=== PATIENT | female | born 1940 | race Caucasian/White ===

== ENCOUNTER → 2016-04-27 | Outpatient (CLI) | payer MEDICARE ==
[2016-04-27 09:58] LABS: Basophils # (A) 0.1 k/uL (0-0.2); Basophils % (A) 1 %; CH 28.5; Eosinophils # (A) 0.1 k/uL (0-0.7); Eosinophils % (A) 2 %; HCT 36.5 % (34.0-46.0); HDW 2.91; HGB 11.4 gm/dL (11.4-16.0); Hypochromasia Slight; Luc % (Auto) 2; Lymphocytes # (A) 0.7 k/uL (1.0-4.8); Lymphocytes % (A) 14 %; MCH 27.9 pg (25.0-35.0); MCHC 31.2 g/dL (31.0-37.0); MCV 89.4 fL (80.0-100.0); Mean Platelet Volume 6.9; Monocytes # (A) 0.4 k/uL (0-1.0); Monocytes % (A) 7 %; Neutrophils # (A) 3.7 k/uL (1.3-7.7); Neutrophils % (A) 74 %; RBC 4.09 m/uL (3.80-5.40); RDW 14.5 % (11.5-15.5); WBC (Perox) 5.19
[2016-04-27 10:10] LABS: Anion Gap 10 mmol/L; Blood Urea Nitrogen 17 mg/dL (7-17); Calcium 9.7 mg/dL (8.4-10.2); Carbon Dioxide 27 mmol/L (22-30); Chloride 104 mmol/L (98-107); Glucose 90 mg/dL (74-99); Non-African American GFR(MDRD) >60 (>60 ml/min/1.73 sqM); Potassium 4.6 mmol/L (3.5-5.1); Sodium 141 mmol/L (137-145)
== END | disposition home or self-care (01) ==
LOC: LABWHC1 08:54
PROVIDERS: ATTEND Internal Medicine
DX: I10 Essential (primary) hypertension (principal)
CPT/HCPCS: 36415; 80048; 85025

== ENCOUNTER → 2016-06-03 | Outpatient (CLI) | payer MEDICARE ==
--- NOTE | 2016-06-03 16:01 | BD ---
EXAMINATION TYPE: MG DEXA axial skeleton. DATE OF EXAM: 06/03/2016 10:44 AM COMPARISON: NONE CLINICAL HISTORY: Height: 5 FT 1 IN Weight: 130 FRAX RISK QUESTIONS: Alcohol (3 or more units per day): YES Family History (Parent hip fracture): YES Glucocorticoids (More than 3mos): NO (Ex: prednisone, prednisolone, methylprednisolone, dexamethasone, and hydrocortisone). History of Fracture in Adulthood: YES Secondary Osteoporosis: 1. Type 1 Diabetes: NO 2. Hyperthyroidism: NO 3. Menopause before 45: NO 4. Malnutrition: NO 5. Chronic liver disease: NO Rheumatoid Arthritis: NO Current Tobacco Use: NO RISK FACTORS HISTORY OF: Family History of Osteoporosis: YES Drink Alcohol: YES Active: YES Postmenopausal woman: TOTAL HYST AGE 54 MEDICATIONS: Additional Medications: KOZAR, VIT D, MOBIC, BABY ASPIRIN, CALCIUM, Additional History: EXAM MEASUREMENTS: Bone mineral densitometry was performed using the [employer] System. Bone mineral density as measured about the Lumbar spine is: ----- L1-L4(G/cm2): 0.943 T Score Values are as follows: ----- L2: -2.9 ----- L3: -1.9 ----- L4: -1.6 ----- L1-L4: -2.0 Bone mineral density has: Increased 1.0% since study of: 2014 Bone mineral density about the R hip (g/cm2): 0.635 Bone mineral density about the L hip (g/cm2): 0.660 T Score values are as follows: -----R Neck: -2.9 -----L Neck: -2.7 -----R Intertrochanter: -2.3 -----L Intertrochanter: -2.1 Bone mineral density has: Decreased -5.9% since study of: 2014 IMPRESSION: Osteoporosis (T Score less than -2.5) as noted by T Score values at the There is increased fracture risk and therapy is usually indicated based on age. Re-Screen 1-2 years. NOTE: T-SCORE=SD OF THE YOUNG ADULT MEAN.
--- NOTE | 2016-06-04 11:50 | MM ---
Reason for exam: screening (asymptomatic). Last mammogram was performed 1 year ago. History: Patient is postmenopausal. Took estrogen for 5 years. Physical Findings: A clinical breast exam by your physician is recommended on an annual basis and results should be correlated with mammographic findings. MG 3D Screening Mammo W/Cad Bilateral CC and MLO view(s) were taken. Prior study comparison: June 03, 2015, bilateral MG 3d screening mammo w/cad. April 16, 2014, bilateral MG screening mammo w CAD. April 10, 2013, bilateral digital screening mammo w/CAD. The breast tissue is extremely dense which could obscure a lesion on mammography. Finding: There are typically benign vascular, round calcifications in both breasts. There is no discrete abnormality. ASSESSMENT: Benign, BI-RAD 2 RECOMMENDATION: Routine screening mammogram of both breasts in 1 year.
== END | disposition home or self-care (01) ==
LOC: RADMAMWWP 09:14
PROVIDERS: ATTEND Obstetrics & Gynecology
DX: Z12.31 Encounter for screening mammogram for malignant neoplasm of breast (principal); M81.0 Age-related osteoporosis without current pathological fracture
CPT/HCPCS: 77080; 77063; G0202

== ENCOUNTER → 2016-07-16 | Outpatient (CLI) | payer MEDICARE | LOC: LABWHC1 14:11 | PROVIDERS: ATTEND Nurse Practitioner Family | DX: I10 Essential (primary) hypertension (principal) | CPT/HCPCS: 36415; 93005 ==

== ENCOUNTER → 2016-08-26 | Outpatient (CLI) | payer MEDICARE ==
[2016-08-26 16:35] LABS: Blood Urea Nitrogen 16 mg/dL (7-17); Non-African American GFR(MDRD) >60 (>60 ml/min/1.73 sqM)
--- NOTE | 2016-08-27 07:13 | CT ---
EXAMINATION TYPE: CT angio neck DATE OF EXAM: 08/26/2016 5:28 PM COMPARISON: NONE HISTORY: Abnormal doppler at office per patient CT DLP: 186.1 mGycm Automated exposure control for dose reduction was used. TECHNIQUE: Performed with IV Contrast, patient injected with 65 mL of Omnipaque 350. FINDINGS: There are emphysematous changes throughout the lungs. Visualized intracranial structures are unremarkable. Visualized portions of the paranasal sinuses and mastoids are clear. Vertebral body height and alignment are maintained. Atlantoaxial relationships are normal. There is degenerative disc disease at C4-5, C5-6 and C6-7. There is mild hypertrophic spondylosis at C5-6 and C6-7. There is mild, diffuse uncovertebral joint disease. No definite discal protrusion is s een. There is a normal origin of the great vessels. The right vertebral artery is dominant. There is mild atheromatous plaque involving the left carotid bulb. There is moderate atheromatous jared que involving the right carotid bulb. There is a high-grade, 90% by diameter stenosis involving the p roximal right ICA. There is a moderate, 40-50% by diameter stenosis involving the proximal left ICA. IMPRESSION: 1. HIGH-GRADE, APPROXIMATELY 90% BY DIAMETER STENOSIS INVOLVING THE PROXIMAL RIGHT ICA. 2. MODERATE, 46% BY DIAMETER STENOSIS INVOLVING THE PROXIMAL LEFT ICA. 3. EMPHYSEMATOUS CHANGES WITHIN THE LUNGS. 4. MILD DEGENERATIVE CHANGES WITHIN THE SPINE.
== END | disposition home or self-care (01) ==
LOC: RADCTMAIN 15:48
PROVIDERS: ATTEND Thoracic Surgery (Cardiothoracic Vascular Surgery)
DX: I65.23 Occlusion and stenosis of bilateral carotid arteries (principal)
CPT/HCPCS: 82565; 84520; 70498; 36415; Q9967

== ENCOUNTER → 2016-09-18 | Outpatient (CLI) | payer MEDICARE ==
[2016-09-18 10:42] LABS: Cholesterol 168 mg/dL (<200); HDL Cholesterol 59 mg/dL (40-60); Triglycerides 61 mg/dL (<150)
== END | disposition home or self-care (01) ==
LOC: LABWHC1 08:49
PROVIDERS: ATTEND Internal Medicine
DX: Z01.810 Encounter for preprocedural cardiovascular examination (principal); E78.00 Pure hypercholesterolemia, unspecified; Z01.812 Encounter for preprocedural laboratory examination
CPT/HCPCS: 36415; 80061

== ENCOUNTER → 2016-09-18 | Outpatient (CLI) | payer MEDICARE ==
[2016-09-18 09:23] LABS: CH 26.8; CHCM 30.9; HCT 36.3 % (34.0-46.0); HDW 2.79; HGB 11.2 gm/dL (11.4-16.0); Hypochromasia Moderate; MCH 26.8 pg (25.0-35.0); MCHC 30.8 g/dL (31.0-37.0); MCV 86.9 fL (80.0-100.0); Mean Platelet Volume 6.2; RBC 4.18 m/uL (3.80-5.40); RDW 15.1 % (11.5-15.5); WBC 5.6 k/uL (3.8-10.6)
[2016-09-18 09:27] LABS: Partial Thromboplastin Time 23.4 sec (22.0-30.0); Prothrombin Time 10.6 sec (9.0-12.0)
[2016-09-18 09:38] LABS: Appearance,Urine Cloudy (Clear); Bilirubin,Urine Negative (Negative); Calcium Oxalate Crystals,Urine Rare /hpf; Glucose,Urine (UA) Negative (Negative); Ketones,Urine Negative (Negative); Leukocyte Esterase,Urine Moderate (Negative); Mucus,Urine Rare /hpf; Nitrite,Urine Negative (Negative); PH, Urine 7.5 (5.0-8.0); Particle Count 5251; Protein,Urine 1+ (Negative); RBC,Urine 4 /hpf (0-5); Specific Gravity,Urine 1.018 (1.001-1.035); Squamous Epithelial Cell,Urine 1 /hpf (0-4); UA Billing (MACRO vs. MICRO) MICRO; WBC,Urine 9 /hpf (0-5)
[2016-09-18 10:42] LABS: Anion Gap 10 mmol/L; Blood Urea Nitrogen 23 mg/dL (7-17); Carbon Dioxide 25 mmol/L (22-30); Chloride 107 mmol/L (98-107); Glucose 95 mg/dL (74-99); Non-African American GFR(MDRD) >60 (>60 ml/min/1.73 sqM); Potassium 4.6 mmol/L (3.5-5.1); Sodium 142 mmol/L (137-145)
== END | disposition home or self-care (01) ==
LOC: LABPAT 09:02
PROVIDERS: ATTEND Thoracic Surgery (Cardiothoracic Vascular Surgery)
DX: Z01.810 Encounter for preprocedural cardiovascular examination (principal); Z01.812 Encounter for preprocedural laboratory examination
CPT/HCPCS: 80051; 81001; 82565; 82947; 84520; 85027; 85610; 85730; 87086

== ENCOUNTER 2016-09-23 05:58 | Inpatient (IN) | payer MEDICARE ==
[2016-09-17 11:05] VITALS: BMI 22.8
[~2016-09-23 05:58] MED LIST: ceFAZolin 2 GM in SODIUM CHLORIDE 0.9% 100 ML IVPB ONE
[2016-09-23] MEDS ORDERED: LACTATED RINGERS 1,000 ML IV SCH (05:59)
[2016-09-23] MEDS ORDERED: SCOPOLAMINE 1.5MG/72HR PATCH TRANSDERM ONE (05:59)
[2016-09-23] MEDS ORDERED: ONDANSETRON 4 MG/2 ML VIAL IVP ONE (05:59)
[2016-09-23] MEDS ORDERED: PHENYLEPHRINE 40 MG in SODIUM CHLORIDE 0.9% 250 ML IV SCH ×2 (05:59→12:30)
[2016-09-23] MEDS ORDERED: LIDOCAINE 1% 20 ML VIAL (10MG/ML) FOR IV START INTRADERMA PRN (05:59)
[2016-09-23] MEDS ORDERED: HYDROmorphone 1 MG/ML 1 ML SYRINGE IVP PRN (05:59)
[2016-09-23] MEDS ORDERED: DEXAMETHASONE SOD PHOSPHATE 10 MG/ML 1 ML VIAL IV ONE (05:59)
[2016-09-23] MEDS ORDERED: MIDAZOLAM 2 MG/2 ML VIAL IV PRN (05:59)
[2016-09-23] MEDS ORDERED: NITROGLYCERIN-D5W PMX 50 MG in DEXTROSE/WATER 1 250ML.BAG IV SCH (05:59)
[2016-09-23] MEDS ORDERED: LIDOCAINE 1% 20 ML VIAL (10MG/ML) FOR IV START INTRADERMA ONE ×2 (06:36)
[2016-09-23] MEDS ORDERED: fentaNYL (PF) 50 MCG/ML 2 ML AMP ONE (07:49)
[2016-09-23] MEDS ORDERED: SUCCINYLCHOLINE CHLORIDE 100 MG/5 ML SYR IV ONE (07:49)
[2016-09-23] MEDS ORDERED: LIDOCAINE 1% INJ 10MG/ML (20 ML MDV) ONE (07:49)
[2016-09-23] MEDS ORDERED: VECURONIUM 10 MG VIAL IV ONE (07:49)
[2016-09-23] MEDS ORDERED: PHENYLEPHRINE-0.9% NACL SYG 1 MG/10 ML SYRINGE ONE (07:49)
[2016-09-23] MEDS ORDERED: PROPOFOL 10 MG/ML 20 ML VIAL IV ONE (07:49)
[2016-09-23] MEDS ORDERED: MIDAZOLAM 2 MG/2 ML VIAL ONE (07:49)
[2016-09-23] MEDS ORDERED: NEOSTIGMINE 1 MG/ML 10 ML VIAL ONE (07:49)
[2016-09-23] MEDS ORDERED: GLYCOPYRROLATE 0.2 MG/ML 2 ML VIAL ONE (07:49)
[2016-09-23] MEDS ORDERED: HEPARIN SODIUM,PORCINE 5,000 UNIT/ML 1 ML VIAL IV ONE (08:31)
[2016-09-23] MEDS ORDERED: GELATIN SPONGE,ABSORB (LARGE) 1 EACH SPONGE TOPICAL ONE ×2 (08:35→09:24)
[2016-09-23] MEDS ORDERED: THROMBIN (BOVINE) 5,000 UNIT VIAL TOPICAL ONE ×2 (08:35→09:24)
[2016-09-23] MEDS ORDERED: SODIUM CHLORIDE 0.9% 500 ML with HEPARIN SODIUM,PORCINE 5,000 UNIT IV ONE ×2 (08:45)
--- NOTE | 2016-09-23 10:26 | P.OP ---
Date of Procedure: 09/23/16 Preoperative Diagnosis: Right internal carotid artery Postoperative Diagnosis: Right internal carotid artery stenosis Procedure(s) Performed: Right carotid endarterectomy Implants: Anesthesia: GETA Surgeon: Dakota Delarosa Accounting Administrative Assistant #1: Dennise Murphy Estimated Blood Loss (ml): 20 Pathology: other (Atherosclerotic plaque) Condition: stable Disposition: ICU Indications for Procedure: Operative Findings: Description of Procedure: Patient was brought to the operating room for elective carotid endarterectomy on the right side was prepped and draped in usual sterile Betadine fashion heparin was administered and she had exposure of the common internal and external carotid arteries on the right side is a severe plaque at the bifurcation heparin after heparin circulating time of 5 minutes we occluded the carotid artery and meticulously endarterectomized the carotid vessel neural monitoring throughout the procedure revealed no changes and therefore a shunt was not placed we meticulously remove the carotid plaque and all intimal debris flushed with heparin saline solution in patch close the vessel with a Hemashield background patch with 6-0 Prolene suture we removed cross-clamp's appropriately to vented the vessel and restore blood flow with no changes in neural monitoring and when the wound was completely dry we closed the wound in layers with Vicryl sutures and Steri-Strips all needle sponge and addition counts were correct Kristin operative report on Antonina and tierra Nazario thank you for typing
[2016-09-23] MEDS ORDERED: HYDROcodone/APAP 5-325MG 1 EACH TAB PO PRN ×2 (10:38)
[2016-09-23] MEDS ORDERED: MAG HYDROX/AL HYDROX/SIMETH 30 ML CUP PO PRN (10:38)
[2016-09-23] MEDS ORDERED: TEMAZEPAM 15 MG CAP PO PRN (10:38)
[2016-09-23] MEDS ORDERED: ACETAMINOPHEN TAB 325 MG TAB PO PRN (10:38)
[2016-09-23] MEDS ORDERED: TRIMETHOBENZAMIDE 100 MG/ML 2 ML VIAL IM PRN (10:38)
[2016-09-23] MEDS ORDERED: MORPHINE SULFATE 2 MG/ML SYRINGE IVP PRN (10:38)
[2016-09-23] MEDS ORDERED: BENZOCAINE/MENTHOL LOZENG 1 EACH LOZENGE MUCOUS MEM PRN (10:38)
[2016-09-23 11:02] LABS: Glucose,Whole Blood 122 mg/dL (75-99)
[2016-09-23] MEDS: DEXTROSE 5%-0.45% NACL 1,000 ML IV SCH (12:16)
[2016-09-23] MEDS: ASPIRIN 81 MG CHEW PO SCH (12:16)
[2016-09-23] MEDS ORDERED: ATROPINE SULFATE 0.1 MG/ML 10ML SYRINGE ONE (12:35)
[2016-09-23] MEDS ORDERED: SODIUM CHLORIDE 0.9% 250 ML IV ONE ×2 (12:39→13:15)
[2016-09-23] MEDS ORDERED: SODIUM CHLORIDE 0.9% 500 ML IV ONE (13:55)
[2016-09-23] MEDS ORDERED: DOPamine DRIP 800 MG in DEXTROSE/WATER 1 500ML.BAG IV SCH (14:25)
[2016-09-23] MEDS ORDERED: DOPamine DRIP 500 ML IV ONE (14:30)
[2016-09-23] MEDS: ceFAZolin 2 GM in SODIUM CHLORIDE 0.9% 100 ML IVPB SCH (15:02)
--- NOTE | 2016-09-23 16:13 | P.CNPUL ---
History of Present Illness Consult date: 09/23/16 Chief complaint: Right carotid endarterectomy History of present illness: 76-year-old female patient with a previous history of sarcoidosis, hypertension and she is an ex-smoker was found to have a critical carotid artery stenosis on the right. This was confirmed by CT angios of the neck that showed 90% and tender current artery stenosis. Based on that, the patient was taken to the operating room and she underwent a right carotid endarterectomy. She is currently postop day #0. Postop the patient was brought into the intensive care unit and initially she was hypotensive on Darrel-Synephrine. At that point Darrel-Synephrine was running at 50 mics and her heart rate was going as low as mid 40s. The Darrel-Synephrine was discontinued and the patient was placed on dopamine which improved her bradycardia and blood pressure. Surgical wound site is dry clean and intact. The patient has no specific complaints otherwise for now. No shortness of breath. Urine output is adequate for now. She is receiving IV fluids D5 half-normal at the rate of 75 mL an hour. Review of Systems All systems: negative Constitutional: Denies chills, Denies fever Eyes: denies blurred vision, denies pain Ears, nose, mouth and throat: Denies headache, Denies sore throat Cardiovascular: Denies chest pain, Denies shortness of breath Respiratory: Denies cough Gastrointestinal: Denies abdominal pain, Denies diarrhea, Denies nausea, Denies vomiting Genitourinary: Denies dysuria, Denies hematuria Musculoskeletal: Denies myalgias Integumentary: Denies pruritus, Denies rash Neurological: Denies numbness, Denies weakness Psychiatric: Denies anxiety, Denies depression Endocrine: Denies fatigue, Denies weight change Past Medical History Past Medical History: Eye Disorder, Hearing Disorder / Deafness, Hyperlipidemia , Hypertension, Osteoarthritis (OA), Respiratory Disorder Additional Past Medical History / Comment(s): Sarcoidosis currently inactive and stable, varicose veins, right carotid artery stenosis, osteoarthritis, cataracts, impaired hearing, hyperlipidemia History of Any Multi-Drug Resistant Organisms: None Reported Past Surgical History: Hysterectomy, Tubal Ligation Additional Past Surgical History / Comment(s): AMPARO BSO. ORIF FX RT TIB-FIB. LIPOMA LT LATERAL THORAX. Past Anesthesia/Blood Transfusion Reactions: No Reported Reaction Smoking Status: Former smoker - Past Family History Mother Family Medical History: No Reported History Medications and Allergies Home Medications Medication Instructions Recorded Confirmed Type Aspirin [Adult Low Dose Aspirin EC] 81 mg PO DAILY 09/17/16 09/23/16 History Calcium Carbonate/Vitamin D3 1 tab PO DAILY 09/17/16 09/23/16 History [Calcium 600-Vit D3 400 Tablet] Cholecalciferol [Vitamin D3] 3,000 unit PO DAILY 09/17/16 09/23/16 History Losartan [Cozaar] 25 mg PO DAILY 09/17/16 09/23/16 History Meloxicam [Mobic] 7.5 mg PO DAILY 09/17/16 09/23/16 History Vits A,C,E/Lutein/Minerals 1 tab PO DAILY 09/17/16 09/23/16 History [Ocuvite with Lutein Tablet] Allergies Allergy/AdvReac Type Severity Reaction Status Date / Time Xofvgfq-Rgh-Bvd Reductase AdvReac MUSCLE PAIN Verified 09/23/16 06:15 Inhibitor Physical Exam Vitals: Vital Signs Temp Pulse Pulse Pulse Resp BP BP 09/23/16 15:30 83 15 09/23/16 15:15 74 16 09/23/16 15:00 68 15 09/23/16 14:45 63 17 09/23/16 14:30 45 L 22 09/23/16 14:00 57 L 18 09/23/16 13:30 62 18 09/23/16 13:00 54 L 19 09/23/16 12:30 48 L 16 09/23/16 12:00 98.1 F 54 L 16 09/23/16 11:30 58 L 17 09/23/16 11:00 98.1 F 64 17 09/23/16 10:45 52 L 18 105/43 09/23/16 10:30 66 18 90/35 09/23/16 10:15 58 L 18 115/45 09/23/16 10:04 97 F L 60 16 110/52 09/23/16 06:35 98.1 F 79 16 151/65 BP BP Pulse Ox 09/23/16 15:30 96 09/23/16 15:15 97 09/23/16 15:00 97 09/23/16 14:45 96 09/23/16 14:30 97 09/23/16 14:00 99 09/23/16 13:30 99 09/23/16 13:00 100 09/23/16 12:30 99 09/23/16 12:00 99 09/23/16 11:30 99 09/23/16 11:00 98 09/23/16 10:45 99 09/23/16 10:30 99 09/23/16 10:15 99 09/23/16 10:04 113/43 98 09/23/16 06:35 133/60 98 Intake and Output 09/23/16 09/23/16 09/23/16 06:59 14:59 22:59 Intake Total 600 2233.120 650 Output Total 1080 850 Balance 600 1153.120 -200 Intake: IV 600 1331 150 Dextrose 5%-0.45% NaCl 1, 300 150 000 ml @ 75 mls/hr IV . [id number] [facility] Rx#:[id number] Lactated Ringers 1,000 ml 80 @ 20 mls/hr IV .Q24H [facility] Rx#:[id number] Intake, IV Titration 542.120 500 Amount DOPamine DRIP 800 mg In 1.805 Dextrose/Water 1 500ml. bag @ 3 MCG/KG/MIN 6.37 mls/hr IV .Q24H [facility] Rx#: [id number] Phenylephrine 40 mg In 40.315 Sodium Chloride 0.9% 250 ml @ Titrate IV .Q0M [facility] Rx#:[id number] Sodium Chloride 0.9% 250 500 ml @ 999 mls/hr IV .Q16M [facility] Rx#:[id number] Sodium Chloride 0.9% 500 500 ml @ 999 mls/hr IV .Q31M [facility] Rx#:[id number] Oral 360 Output: Urine 1060 850 Estimated Blood Loss 20 Other: Voiding Method Indwelling Catheter Indwelling Catheter Weight 56.699 kg Patient Weight 09/24/16 06:59 Weight 56.699 kg ABP, PAP, CO, CI - Last 8 Hours Arterial Blood Pressure 118/46 Arterial Blood Pressure 115/42 Arterial Blood Pressure 104/40 Arterial Blood Pressure 106/40 Arterial Blood Pressure 128/54 Arterial Blood Pressure 122/44 Arterial Blood Pressure 112/42 Arterial Blood Pressure 126/46 Arterial Blood Pressure 124/45 Arterial Blood Pressure 114/42 Arterial Blood Pressure 107/42 Arterial Blood Pressure 124/42 The patient appeared well nourished and normally developed. Vital signs as documented. Head exam is unremarkable. No scleral icterus or corneal arcus noted. Neck is without jugular venous distension, thyromegaly, or carotid bruits. Carotid upstrokes are brisk bilaterally. Lungs are clear to auscultation and percussion. Cardiac exam reveals the PMI to be normally sized and situated. Rhythm is regular. First and second heart sounds normal. No murmurs, rubs or gallops. Abdominal exam reveals normal bowel sounds, no masses , no organomegaly and no aortic enlargement. Extremities are nonedematous and both femoral and pedal pulses are normal. Surgical wound site over the right neck area dry clean and intact at this point. Results - Laboratory Findings Abnormal lab findings: Abnormal Labs 09/23/16 10:59 POC Glucose (mg/dL) 122 H Assessment and Plan Plan: Assessment 1 right-sided endarterectomy, patient is postop day 0 2 postoperative hypotension recovered and currently the patient is on dopamine at 5 mics. 3 sarcoidosis currently inactive in stable 4 hyperlipidemia 5 hypertension 6 osteoarthritis 7 impaired hearing Plan Continued IV fluids and the patient is on D5 half-normal. Wean off dopamine and discontinue as tolerated to keep him map of above 65. Monitor urine output. Monitor the surgical wound site. Neuro checks. Keep the patient ICU overnight. Possible discharge within the next 2448 hrs. if condition is further stabilized.
[2016-09-23] MEDS: HEPARIN SODIUM,PORCINE 5,000 UNIT/ML 1 ML VIAL SQ SCH (16:21)
[2016-09-24] MEDS: ceFAZolin 2 GM in SODIUM CHLORIDE 0.9% 100 ML IVPB SCH (00:28)
[2016-09-24] MEDS: DEXTROSE 5%-0.45% NACL 1,000 ML IV SCH (01:45)
[2016-09-24] MEDS: HEPARIN SODIUM,PORCINE 5,000 UNIT/ML 1 ML VIAL SQ SCH ×2 (01:53→08:35)
[2016-09-24 04:27] LABS: Basophils % (A) 1 %; CHCM 31.9; Eosinophils # (A) 0.1 k/uL (0-0.7); Eosinophils % (A) 1 %; HCT 30.5 % (34.0-46.0); HDW 2.81; Hypochromasia Slight; Luc # (Auto) 0.13; Luc % (Auto) 2; Lymphocytes # (A) 0.9 k/uL (1.0-4.8); Lymphocytes % (A) 15 %; MCHC 31.8 g/dL (31.0-37.0); MCV 84.9 fL (80.0-100.0); Mean Platelet Volume 7.1; Monocytes # (A) 0.4 k/uL (0-1.0); Monocytes % (A) 6 %; Neutrophils # (A) 4.2 k/uL (1.3-7.7); Neutrophils % (A) 74 %; RBC 3.59 m/uL (3.80-5.40); RDW 15.1 % (11.5-15.5); WBC 5.6 k/uL (3.8-10.6); WBC (Perox) 5.71
[2016-09-24 04:29] LABS: HGB 9.7 gm/dL (11.4-16.0)
--- NOTE | 2016-09-24 08:19 | P.PN ---
<Erlinda Goff - Last Filed: 09/24/16 08:11> Subjective Principal diagnosis: right internal carotid artery stenosis POD #1 right carotid endarterectomy Patient's currently sitting up in bed in no acute distress. Was on Neosynephrine after OR for hypotension but was becoming bradycardic in the 40s. Was given IV fluid boluses, Darrel was discontinued, and she was placed on dopamine for hypotension and bradycardia. Dopamine continued to be weaned overnight. Patient denies any pain. Objective - Vital Signs Vital signs: Vital Signs Temp 98.1 F 09/24/16 04:00 Pulse 62 09/24/16 07:00 Resp 25 H 09/24/16 07:00 BP 92/41 09/24/16 06:00 Pulse Ox 94 L 09/24/16 07:00 Intake & Output 09/23/16 09/24/16 09/24/16 18:59 06:59 18:59 Intake Total 3393.120 925 75 Output Total 2155 2270 125 Balance 1238.120 -1345 -50 Weight 56.699 kg 61.3 kg Intake: IV 1631 925 75 Dextrose 5%-0.45% NaCl 1, 600 825 75 000 ml @ 75 mls/hr IV . [id number] [facility] Rx#:[id number] Lactated Ringers 1,000 ml 80 @ 20 mls/hr IV .Q24H [facility] Rx#:[id number] ceFAZolin 2 gm In Sodium 100 Chloride 0.9% 100 ml @ 100 mls/hr IVPB Q8H [facility] Rx#:[id number] Intake, IV Titration 1042.120 Amount DOPamine DRIP 800 mg In 1.805 Dextrose/Water 1 500ml. bag @ 3 MCG/KG/MIN 6.37 mls/hr IV .Q24H [facility] Rx#: [id number] Phenylephrine 40 mg In 40.315 Sodium Chloride 0.9% 250 ml @ Titrate IV .Q0M [facility] Rx#:[id number] Sodium Chloride 0.9% 250 500 ml @ 999 mls/hr IV .Q16M [facility] Rx#:[id number] Sodium Chloride 0.9% 500 500 ml @ 999 mls/hr IV .Q31M [facility] Rx#:[id number] Oral 720 Output: Urine 2135 2270 125 Estimated Blood Loss 20 Other: Voiding Method Indwelling Catheter Indwelling Catheter ABP, PAP, CO, CI - Last Documented Arterial Blood Pressure 103/45 - Constitutional General appearance: Present: cooperative, no acute distress - Respiratory Details: Lungs clear to auscultation. Respirations even, nonlabored. Currently on room air with oxygen saturation 96%. Able to achieve 1250 mL on her incentive spirometry. - Cardiovascular Details: S1, S2 present. Regular rate and rhythm, sinus bradycardia to sinus rhythm on telemetry. Teds/SCDs present. - Gastrointestinal Gastrointestinal Comment(s): Abdomen soft, nontender, nondistended. Active bowel sounds 4 quadrants. Tolerating diet. - Genitourinary Genitourinary Comment(s): Lainez present draining clear, yellow urine. Output last night 75-325 ml/hr - Integumentary Integumentary Comment(s): Right neck incision dressing removed, incision well approximated. - Neurologic Neurologic Comment(s): Neurologically intact without any focal deficits. - Musculoskeletal Musculoskeletal: Present: strength equal bilaterally - Psychiatric Psychiatric: Present: A&O x's 3, appropriate affect, intact judgment & insight - Allied health notes Allied health notes reviewed: nursing - Labs CBC & Chem 7: 09/24/16 04:11 Labs: Abnormal Lab Results - Last 24 Hours (Table) 09/23/16 09/24/16 Range/Units 10:59 04:11 RBC 3.59 L (3.80-5.40) m/uL Hgb 9.7 L D (11.4-16.0) gm/dL Hct 30.5 L (34.0-46.0) % Lymphocytes # 0.9 L (1.0-4.8) k/uL POC Glucose (mg/dL) 122 H (75-99) mg/dL Assessment and Plan (1) Carotid stenosis, right Status: Acute (2) Hypertension Status: Acute (3) Hyperlipidemia Status: Acute Plan: 1. Wean dopamine. 2. Neuro checks. 3. Continue to encourage incentive spirometry. 4. Increase activity, out of bed to chair. Ambulate in hallway. 5. Will discontinue arterial line if able to discontinue dopamine and blood pressure remains stable. 6. Medical management per primary/pulminology. 7. Possible transfer to [facility] later this afternoon if able to discontinue dopamine and blood pressure remains stable. 8. More recommendations as patient progresses. Time with Patient: Greater than 30 <Marco Antonio Gordon - Last Filed: 09/24/16 08:33> Subjective TELEPHONE SERVICE ADVISER note reviewed and accepted. Stable first postop day from right carotid endarterectomy with patch angioplasty. Still requiring some dopamine to maintain adequate systolic pressure. Hemodynamics and urine output otherwise satisfactory. Neck shows no swelling or induration. Neurologically intact. Continue to wean dopamine. Home when blood pressure stable off all IV meds. Objective - Vital Signs Vital signs: Vital Signs Temp 98.1 F 09/24/16 04:00 Pulse 62 09/24/16 07:00 Resp 25 H 09/24/16 07:00 BP 92/41 09/24/16 06:00 Pulse Ox 94 L 09/24/16 07:00 Intake & Output 09/23/16 09/24/16 09/24/16 18:59 06:59 18:59 Intake Total 3393.120 925 75 Output Total 2155 2270 125 Balance 1238.120 -1345 -50 Weight 56.699 kg 61.3 kg Intake: IV 1631 925 75 Dextrose 5%-0.45% NaCl 1, 600 825 75 000 ml @ 75 mls/hr IV . [id number] [facility] Rx#:[id number] Lactated Ringers 1,000 ml 80 @ 20 mls/hr IV .Q24H [facility] Rx#:[id number] ceFAZolin 2 gm In Sodium 100 Chloride 0.9% 100 ml @ 100 mls/hr IVPB Q8H [facility] Rx#:[id number] Intake, IV Titration 1042.120 Amount DOPamine DRIP 800 mg In 1.805 Dextrose/Water 1 500ml. bag @ 3 MCG/KG/MIN 6.37 mls/hr IV .Q24H [facility] Rx#: [id number] Phenylephrine 40 mg In 40.315 Sodium Chloride 0.9% 250 ml @ Titrate IV .Q0M [facility] Rx#:[id number] Sodium Chloride 0.9% 250 500 ml @ 999 mls/hr IV .Q16M [facility] Rx#:[id number] Sodium Chloride 0.9% 500 500 ml @ 999 mls/hr IV .Q31M [facility] Rx#:[id number] Oral 720 Output: Urine 2135 2270 125 Estimated Blood Loss 20 Other: Voiding Method Indwelling Catheter Indwelling Catheter ABP, PAP, CO, CI - Last Documented Arterial Blood Pressure 103/45 - Labs CBC & Chem 7: 09/24/16 04:11 Labs: Abnormal Lab Results - Last 24 Hours (Table) 09/23/16 09/24/16 Range/Units 10:59 04:11 RBC 3.59 L (3.80-5.40) m/uL Hgb 9.7 L D (11.4-16.0) gm/dL Hct 30.5 L (34.0-46.0) % Lymphocytes # 0.9 L (1.0-4.8) k/uL POC Glucose (mg/dL) 122 H (75-99) mg/dL
[2016-09-24] MEDS: ASPIRIN 81 MG CHEW PO SCH (08:36)
[2016-09-24] MEDS ORDERED: LOSARTAN 25 MG TAB PO SCH (09:00)
[2016-09-24] MEDS ORDERED: MELOXICAM 7.5 MG TAB PO SCH (09:00)
[2016-09-24] MEDS ORDERED: ASPIRIN 81 MG CHEW PO SCH (09:00)
[2016-09-24] MEDS ORDERED: VIT A,C & E-LUTEIN-MINERALS 1 EACH TAB PO SCH (09:00)
[2016-09-24] MEDS ORDERED: CALCIUM CARB-VIT D 500MG-200UN 1 EACH TAB PO SCH (09:00)
[2016-09-24] MEDS ORDERED: CHOLECALCIFEROL 1,000 UNIT TAB PO SCH (12:00)
--- NOTE | 2016-09-24 12:11 | P.PN ---
Subjective 76-year-old female patient with a previous history of sarcoidosis, hypertension and she is an ex-smoker was found to have a critical carotid artery stenosis on the right. This was confirmed by CT angios of the neck that showed 90% and tender current artery stenosis. Based on that, the patient was taken to the operating room and she underwent a right carotid endarterectomy. She is currently postop day #0. Postop the patient was brought into the intensive care unit and initially she was hypotensive on Darrel-Synephrine. At that point Darrel-Synephrine was running at 50 mics and her heart rate was going as low as mid 40s. The Darrel-Synephrine was discontinued and the patient was placed on dopamine which improved her bradycardia and blood pressure. Surgical wound site is dry clean and intact. The patient has no specific complaints otherwise for now. No shortness of breath. Urine output is adequate for now. She is receiving IV fluids D5 half-normal at the rate of 75 mL an hour. On the patient is being seen in the follow-up. She is postop day #1 following a right carotid endarterectomy. As mentioned earlier, she had issues with hypotension. The patient was placed on dopamine which gradually got weaned off and was discontinued this morning. Following that her blood pressure dropped down to the mid 80s and currently it is up to mid 100s. She is producing adequate amount of urine output. She is asymptomatic with this blood pressure. We opted to monitor the blood pressure for another 6 hours prior to making any commitment on her disposition. The hemoglobin is at 9.7. Objective - Vital Signs Vital signs: Vital Signs Temp 97.4 F L 09/24/16 08:00 Pulse 66 09/24/16 11:00 Resp 20 09/24/16 11:00 BP 101/44 09/24/16 11:00 Pulse Ox 99 09/24/16 11:00 Intake & Output 09/23/16 09/24/16 09/24/16 18:59 06:59 18:59 Intake Total 3393.120 925 248.978 Output Total 2155 2270 145 Balance 1238.120 -1345 103.978 Weight 56.699 kg 61.3 kg Intake: IV 1631 925 75 Dextrose 5%-0.45% NaCl 1, 600 825 75 000 ml @ 75 mls/hr IV . [id number] [facility] Rx#:[id number] Lactated Ringers 1,000 ml 80 @ 20 mls/hr IV .Q24H [facility] Rx#:[id number] ceFAZolin 2 gm In Sodium 100 Chloride 0.9% 100 ml @ 100 mls/hr IVPB Q8H [facility] Rx#:[id number] Intake, IV Titration 1042.120 173.978 Amount DOPamine DRIP 800 mg In 1.805 173.978 Dextrose/Water 1 500ml. bag @ 3 MCG/KG/MIN 6.37 mls/hr IV .Q24H [facility] Rx#: [id number] Phenylephrine 40 mg In 40.315 Sodium Chloride 0.9% 250 ml @ Titrate IV .Q0M [facility] Rx#:[id number] Sodium Chloride 0.9% 250 500 ml @ 999 mls/hr IV .Q16M [facility] Rx#:[id number] Sodium Chloride 0.9% 500 500 ml @ 999 mls/hr IV .Q31M [facility] Rx#:[id number] Oral 720 Output: Urine 2135 2270 145 Estimated Blood Loss 20 Other: Voiding Method Indwelling Catheter Indwelling Catheter ABP, PAP, CO, CI - Last Documented Arterial Blood Pressure 108/33 - Exam The patient appeared well nourished and normally developed. Vital signs as documented. Head exam is unremarkable. No scleral icterus or corneal arcus noted. Neck is without jugular venous distension, thyromegaly, or carotid bruits. Carotid upstrokes are brisk bilaterally. Lungs are clear to auscultation and percussion. Cardiac exam reveals the PMI to be normally sized and situated. Rhythm is regular. First and second heart sounds normal. No murmurs, rubs or gallops. Abdominal exam reveals normal bowel sounds, no masses , no organomegaly and no aortic enlargement. Extremities are nonedematous and both femoral and pedal pulses are normal. Surgical wound site over the right neck area dry clean and intact at this point. - Labs CBC & Chem 7: 09/24/16 04:11 Labs: Abnormal Lab Results - Last 24 Hours (Table) 09/24/16 Range/Units 04:11 RBC 3.59 L (3.80-5.40) m/uL Hgb 9.7 L D (11.4-16.0) gm/dL Hct 30.5 L (34.0-46.0) % Lymphocytes # 0.9 L (1.0-4.8) k/uL Assessment and Plan Plan: Assessment 1 right-sided endarterectomy, patient is postop day 1 2 postoperative hypotension recovered and currently the patient is off pressors 3 sarcoidosis currently inactive in stable 4 hyperlipidemia 5 hypertension 6 osteoarthritis 7 impaired hearing Plan Continued IV fluids and the patient is on D5 half-normal. Wean off dopamine and discontinue as tolerated to keep him map of above 65. Monitor urine output. Monitor the surgical wound site. Neuro checks. Keep the patient ICU overnight. Possible discharge within the next 2448 hrs. if condition is further stabilized. No other major issues for now. Respiratory status is stable.
[2016-09-24 12:26] VITALS: PULSE 61; RESP 18; TEMP 97.5
[2016-09-24 15:18] LABS: ALT 15 U/L (9-52); AST 12 U/L (14-36); Alkaline Phosphatase 52 U/L (38-126); Anion Gap 6 mmol/L; Blood Urea Nitrogen 8 mg/dL (7-17); Calcium 9.1 mg/dL (8.4-10.2); Carbon Dioxide 26 mmol/L (22-30); Chloride 107 mmol/L (98-107); Glucose 106 mg/dL (74-99); Non-African American GFR(MDRD) >60 (>60 ml/min/1.73 sqM); Potassium 3.9 mmol/L (3.5-5.1); Sodium 139 mmol/L (137-145); Total Bilirubin 0.3 mg/dL (0.2-1.3); Total Protein 5.6 g/dL (6.3-8.2)
[2016-09-24 15:27] VITALS: BP 121/57
--- NOTE | 2016-09-25 08:32 | P.DS ---
Providers Date of admission: 09/23/16 05:58 Attending physician: Dakota Delarosa Consults: 09/23/16 10:38 Consult Physician Routine Consulting Provider: Marco Antonio Gordon Consult Reason/Comments: vascular managment Do you want consulting provider notified?: Already Contacted Consult Physician Routine Consulting Provider: Rosemary Parker Consult Reason/Comments: known to you, med managment Do you want consulting provider notified?: Yes 09/23/16 14:41 Consult Physician Routine Consulting Provider: Maru Ruano Consult Reason/Comments: Bradycardia Do you want consulting provider notified?: Already Contacted Primary care physician: Rosemary [facility] Course: FINAL DIAGNOSIS: 1.[ High-grade right internal carotid artery stenosis] 2.[ Sarcoidosis] 3.[ Hypertension] 4.[ Hyperlipidemia] 5.[ History of nicotine dependence] PRINCIPAL PROCEDURE: 1.[ Right carotid endarterectomy with Dacron patch angioplasty] HISTORY OF PRESENT ILLNESS: [This is a 76-year-old female patient who is followed by Dr. Rosemary Parker on an outpatient basis. The patient has a previous history of hypertension, hyperlipidemia, sarcoidosis, and has a history of nicotine dependence in the past. Recently, she was found to have an abnormal carotid doppler and subsequently underwent a CTA of her neck on 08/26/2016 which demonstrated a high-grade stenosis of 90% involving her proximal right internal carotid artery. The CTA of her neck also demonstrated a moderate 40-50 % stenosis involving her proximal left internal carotid artery. She was seen by Dr. Marco Antonio Gordon on the office and the results of the CTA of her neck were reviewed with the patient and an elective right carotid endarterectomy procedure was recommended.] HOSPITAL COURSE:[ The patient was admitted to the hospital and after obtaining consent was taken to the operating room where Dr. Dakota Delarosa complete an elective right carotid endarterectomy with Dacron patch angioplasty. The patient was then transferred to the cardiovascular intensive care unit where she was recovered, and monitored hemodynamically. The patient recovered well and discharge instructions were reviewed with the patient and her family.] COMPLICATIONS: [There were no postoperative complications.] CONSULTATIONS: 1.[ Dr. Rouse for medical and intensive care management] DISCHARGE INSTRUCTIONS: 1. No driving for 4 weeks, or until physician gives their ok. 2. The patient should sleep in their own bed, no medical bed needed. 3. Please notify surgeon/nurse practitioner for temperature greater than 101F or purulent drainage from incisions 4. No lifting, pushing, or pulling more than 10 pounds for 2 weeks. The physician will advise of any restriction changes. 5. Routine sternal incision care thereafter no ointments, lotions or powders on the incisions. Plan - Discharge Summary New Discharge Prescriptions: New Acetaminophen Tab [Tylenol] 650 mg PO Q4HR PRN tab PRN Reason: Mild Pain Aspirin 162 mg PO DAILY Continue Vits A,C,E/Lutein/Minerals [Ocuvite with Lutein Tablet] 1 tab PO DAILY Losartan [Cozaar] 25 mg PO DAILY Cholecalciferol [Vitamin D3] 3,000 unit PO DAILY Meloxicam [Mobic] 7.5 mg PO DAILY Calcium Carbonate/Vitamin D3 [Calcium 600-Vit D3 400 Tablet] 1 tab PO DAILY Discontinued Aspirin [Adult Low Dose Aspirin EC] 81 mg PO DAILY Discharge Medication List Calcium Carbonate/Vitamin D3 [Calcium 600-Vit D3 400 Tablet] 1 tab PO DAILY [History] Cholecalciferol [Vitamin D3] 3,000 unit PO DAILY 09/17/16 [History] Losartan [Cozaar] 25 mg PO DAILY 09/17/16 [History] Meloxicam [Mobic] 7.5 mg PO DAILY 09/17/16 [History] Vits A,C,E/Lutein/Minerals [Ocuvite with Lutein Tablet] 1 tab PO DAILY 09/17/16 [History] Acetaminophen Tab [Tylenol] 650 mg PO Q4HR PRN tab 09/24/16 [Rx] Aspirin 162 mg PO DAILY 09/24/16 [Rx] Follow up Appointment(s)/Referral(s): Rosemary Parker MD [Primary Care Provider] - 10/15/16 10:45 am Marco Antonio Gordon DO [Doctor of Osteopathic Medicine] - 2 Weeks (system down at office. will have pt call for 2 week follow up appointment.) Patient Instructions/Handouts: Atherectomy (DC) Activity/Diet/Wound Care/Special Instructions: DISCHARGE INSTRUCTIONS: 1. No driving until physician gives their ok. 2. No lifting, pushing, or pulling more than 5 pounds until seen by Dr. Gordon. 3. The patient is expected to continue the prescribed walking program. 4. Continue pain control per as needed orders. 5. Continue with incentive spirometry until otherwise directed by the physician. 6. Must shower daily using liquid antibacterial soap over incision. 7. Routine incision care. No powders, lotions, ointments on incisions. 8. Please call surgeon/MARKETING OPERATIONS COORDINATOR for temp greater than 101 F, purulent drainage/ increased redness from incisions, signs/symptoms of stroke (slurred speech, difficulty swallowing, weakness on one side of the body). 9. Follow a heart healthy diet. Discharge Disposition: HOME SELF-CARE
--- NOTE | 2016-09-26 08:07 | CONS ---
Mrs. Martin is a 76-year-old female who is seen for cardiac evaluation after the carotid endarterectomy. The patient underwent carotid endarterectomy without any problem and the patient had some low blood pressure in the intensive care unit. Patient was started on Darrel-Synephrine and subsequently the patient became bradycardic. She did not have any chest pain or shortness of breath. Patient has a history of hypertension. She did take her Cozaar this morning. Patient denies any prior history of angina, myocardial infarction or congestive cardiac failure. Patient has a history of sarcoidosis. Past medical history includes history of varicose veins, cataract surgery, history of lipoma and history of right- tibia fibular fracture and total abdominal hysterectomy. Patient's home medications include Mobic, Cozaar and baby aspirin. Physical examination at present reveals a 76-year-old female who is comfortable , does not appear to be in any acute distress. Patient's heart rate is 70 per minute, blood pressure is 95/70 mmHg. Head and ENT examination is negative. Neck is supple. There is no increase in jugular venous pressure. Both the carotid pulses are felt. There is no bruit. Chest is symmetrical. Heart: PMI is not felt. First and second heart sounds are normal. There is no evidence of any murmur. Lungs are clinically clear to auscultation and percussion. Abdomen is soft. Liver and spleen are not enlarged. Extremities: Peripheral pulsations are 2+. FINAL IMPRESSION: This patient is status post carotid endarterectomy. Patient had an episode of hypotension without any symptoms. The patient's blood pressure is now being maintained with dopamine. Heart rate is under control. We will continue to monitor her for the next 24-hours. [facility]
== END 2016-09-24 16:11 | disposition home or self-care (01) | DRG 39 ==
LOC: 2ORMAIN 05:58 → 6ICU 10:36
PROVIDERS: ADMIT Thoracic Surgery (Cardiothoracic Vascular Surgery); ATTEND Thoracic Surgery (Cardiothoracic Vascular Surgery)
PROC: 03UK0JZ Supplement Right Internal Carotid Artery with Synthetic Substitute, Open Approach (ICD-10-PCS; 2016-09-23)
PROC: 03CK0ZZ Extirpation of Matter from Right Internal Carotid Artery, Open Approach (ICD-10-PCS; principal; 2016-09-23 07:30)
DX: I65.21 Occlusion and stenosis of right carotid artery (principal); R00.1 Bradycardia, unspecified; I10 Essential (primary) hypertension; E78.5 Hyperlipidemia, unspecified; I95.81 Postprocedural hypotension; D86.9 Sarcoidosis, unspecified; H26.9 Unspecified cataract; M19.90 Unspecified osteoarthritis, unspecified site; H91.90 Unspecified hearing loss, unspecified ear; Z87.891 Personal history of nicotine dependence; Z79.899 Other long term (current) drug therapy; Z79.82 Long term (current) use of aspirin; Z88.8 Allergy status to other drugs, medicaments and biological substances; Z87.81 Personal history of (healed) traumatic fracture; Z79.1 Long term (current) use of non-steroidal anti-inflammatories (NSAID); Z90.710 Acquired absence of both cervix and uterus; Z90.721 Acquired absence of ovaries, unilateral; Z90.79 Acquired absence of other genital organ(s); Z98.51 Tubal ligation status
CPT/HCPCS: 36620; 80053; 85025; 86850; 86900; 86901; 88304; 88311

== ENCOUNTER → 2017-07-13 | Outpatient (CLI) | payer MEDICARE ==
--- NOTE | 2017-07-14 14:57 | MM ---
Reason for exam: screening (asymptomatic). Last mammogram was performed 1 year and 1 month ago. History: Patient is postmenopausal. Took estrogen for 5 years. Physical Findings: A clinical breast exam by your physician is recommended on an annual basis and results should be correlated with mammographic findings. MG 3D Screening Mammo W/Cad Bilateral CC and MLO view(s) were taken. Prior study comparison: June 03, 2016, bilateral MG 3d screening mammo w/cad. June 03, 2015, bilateral MG 3d screening mammo w/cad. The breast tissue is heterogeneously dense. This may lower the sensitivity of mammography. Benign bilateral oil cysts. Progressive oil cyst calcifications left lower inner quadrant. No significant changes when compared with prior studies. ASSESSMENT: Benign, BI-RAD 2 RECOMMENDATION: Routine screening mammogram of both breasts in 1 year.
== END | disposition home or self-care (01) ==
LOC: RADMAMWWP 09:51
PROVIDERS: ATTEND Obstetrics & Gynecology
DX: Z12.31 Encounter for screening mammogram for malignant neoplasm of breast (principal)
CPT/HCPCS: 77063; 77067

== ENCOUNTER → 2017-08-19 | Outpatient (CLI) | payer MEDICARE ==
[2017-08-19 10:15] LABS: Basophils % (A) 1 %; Eosinophils # (A) 0.1 k/uL (0-0.7); Eosinophils % (A) 1 %; HCT 38.8 % (34.0-46.0); HGB 13.2 gm/dL (11.4-16.0); Lymphocytes # (A) 0.9 k/uL (1.0-4.8); Lymphocytes % (A) 16 %; MCH 31.6 pg (25.0-35.0); MCHC 33.9 g/dL (31.0-37.0); MCV 93.2 fL (80.0-100.0); Mean Platelet Volume 6.1; Monocytes # (A) 0.4 k/uL (0-1.0); Monocytes % (A) 6 %; Neutrophils # (A) 4.1 k/uL (1.3-7.7); Neutrophils % (A) 74 %; Platelet Count 287 k/uL (150-450); RBC 4.17 m/uL (3.80-5.40); RDW 14.1 % (11.5-15.5); WBC 5.6 k/uL (3.8-10.6)
[2017-08-19 10:31] LABS: ALT 27 U/L (9-52); AST 20 U/L (14-36); Albumin 3.9 g/dL (3.5-5.0); Alkaline Phosphatase 56 U/L (38-126); Anion Gap 11 mmol/L; Blood Urea Nitrogen 27 mg/dL (7-17); Calcium 9.9 mg/dL (8.4-10.2); Carbon Dioxide 26 mmol/L (22-30); Chloride 105 mmol/L (98-107); Cholesterol 188 mg/dL (<200); Glucose 98 mg/dL (74-99); HDL Cholesterol 63 mg/dL (40-60); LDL Cholesterol,Calculated 108 mg/dL (0-99); Potassium 4.6 mmol/L (3.5-5.1); Sodium 142 mmol/L (137-145); Total Bilirubin 0.4 mg/dL (0.2-1.3); Total Protein 6.4 g/dL (6.3-8.2); Triglycerides 85 mg/dL (<150)
[2017-08-19 10:46] LABS: T4, Free (Free Thyroxine) 1.16 ng/dL (0.78-2.19)
[2017-08-19 16:20] LABS: Iron Saturation 17.85 (12.00-45.00)
== END | disposition home or self-care (01) ==
LOC: LABWHC1 09:26
PROVIDERS: ATTEND Internal Medicine
DX: I10 Essential (primary) hypertension (principal); E78.00 Pure hypercholesterolemia, unspecified; M81.0 Age-related osteoporosis without current pathological fracture; I77.9 Disorder of arteries and arterioles, unspecified; D86.0 Sarcoidosis of lung
CPT/HCPCS: 36415; 80053; 80061; 82607; 82728; 83540; 83550; 84439; 84443; 85025

== ENCOUNTER → 2018-08-24 | Outpatient (CLI) | payer MEDICARE ==
--- NOTE | 2018-08-25 10:53 | MM ---
Reason for exam: screening (asymptomatic). Last mammogram was performed 1 year and 1 month ago. History: Patient is postmenopausal. Took estrogen for 5 years. Physical Findings: A clinical breast exam by your physician is recommended on an annual basis and results should be correlated with mammographic findings. MG 3D Screening Mammo W/Cad Bilateral CC and MLO view(s) were taken. Prior study comparison: July 13, 2017, bilateral MG 3d screening mammo w/cad. June 03, 2016, bilateral MG 3d screening mammo w/cad. The breast tissue is extremely dense which could obscure a lesion on mammography. Benign appearing bilateral calcifications. No suspicious abnormality. No significant changes when compared with prior studies. ASSESSMENT: Benign, BI-RAD 2 RECOMMENDATION: Routine screening mammogram of both breasts in 1 year. (Ultrasound could be considered as supplement screening, given the extreme density).
--- NOTE | 2018-08-25 17:09 | BD ---
EXAMINATION TYPE: Axial Bone Density DATE OF EXAM: 08/24/2018 COMPARISON: NONE CLINICAL HISTORY: Height: 5 FT Weight: 126 FRAX RISK QUESTIONS: Family History (Parent hip fracture): YES History of Fracture in Adulthood: YES RISK FACTORS HISTORY OF: Family History of Osteoporosis: YES Active: YES Postmenopausal woman: TOTAL HYST AGE 54 Lost more than 2 inches in height since high school: YES MEDICATIONS: Additional Medications: KOZAR, ASPIRIN, OCUVITE, VIT D , CALCIUM Additional History: EXAM MEASUREMENTS: Bone mineral densitometry was performed using the [employer] System. Bone mineral density as measured about the Lumbar spine is: ----- L1-L4(G/cm2): 0.961 T Score Values are as follows: ----- L2: -3.1 ----- L3: -0.6 ----- L4: -1.7 ----- L1-L4: -1.8 Bone mineral density has: INCREASED 3.6 % since study of: 2016 Bone mineral density about the R hip (g/cm2): 0.673 Bone mineral density about the L hip (g/cm2): 0.681 T Score values are as follows: -----R Neck: -2.6 -----L Neck: -2.6 -----R Total: -2.6 -----L Total: -2.1 Bone mineral density has: DECREASED -4.6 % since study of: 2017 IMPRESSION: Osteoporosis (T Score less than -2.5). There is increased fracture risk and therapy is usually indicated based on age. Re-Screen 1-2 years. NOTE: T-SCORE=SD OF THE YOUNG ADULT MEAN.
== END | disposition home or self-care (01) ==
LOC: RADMAMWWP 10:02
PROVIDERS: ATTEND Obstetrics & Gynecology
DX: Z12.31 Encounter for screening mammogram for malignant neoplasm of breast (principal); M81.0 Age-related osteoporosis without current pathological fracture
CPT/HCPCS: 77063; 77067; 77080

== ENCOUNTER → 2019-08-31 | Outpatient (CLI) | payer MEDICARE ==
--- NOTE | 2019-09-05 09:16 | MM ---
Reason for exam: additional evaluation requested from prior study. Last mammogram was performed 1 year ago. History: Patient is postmenopausal. Took estrogen for 5 years. Physical Findings: Nurse did not find any significant physical abnormalities on exam. MG 3D Diag Mammo W/Cad SYLVIA Bilateral CC and MLO view(s) were taken. Prior study comparison: August 24, 2018, bilateral MG 3d screening mammo w/cad. July 13, 2017, bilateral MG 3d screening mammo w/cad. The breast tissue is extremely dense which could obscure a lesion on mammography. Benign appearing bilateral calcifications. No suspicious abnormality. These results were verbally communicated with the patient and result sheet given to the patient on 08/31/19. ASSESSMENT: Benign, BI-RAD 2 RECOMMENDATION: Routine screening mammogram of both breasts in 1 year. Manage patient on a clinical basis.
--- NOTE | 2019-09-05 09:17 | USB ---
Reason for exam: additional evaluation requested from prior study. History: Patient is postmenopausal. Took estrogen for 5 years. US Breast RT Right complete breast ultrasound includes all four quadrants, the retroareolar region and axilla. Finding demonstrates no cystic or solid lesion seen. No suspicious sonographic finding. Dense tissue throughout. These results were verbally communicated with the patient and result sheet given to the patient on 08/31/19. ASSESSMENT: Negative, BI-RAD 1 RECOMMENDATION: Routine screening mammogram of both breasts. Manage patient on a clinical basis.
== END | disposition home or self-care (01) ==
LOC: RADMAMWWP 14:22
PROVIDERS: ATTEND Obstetrics & Gynecology
DX: N64.4 Mastodynia (principal)
CPT/HCPCS: 77066; 76641; G0279; 77062

== ENCOUNTER → 2019-12-15 | Outpatient (CLI) | payer MEDICARE ==
[2019-12-15 12:25] LABS: Basophils % (A) 1 %; Eosinophils % (A) 1 %; HCT 39.8 % (34.0-46.0); HGB 12.8 gm/dL (11.4-16.0); Lymphocytes # (A) 0.8 k/uL (1.0-4.8); Lymphocytes % (A) 19 %; MCH 30.9 pg (25.0-35.0); MCHC 32.1 g/dL (31.0-37.0); MCV 96.5 fL (80.0-100.0); Mean Platelet Volume 6.5; Monocytes # (A) 0.3 k/uL (0-1.0); Monocytes % (A) 7 %; Neutrophils # (A) 2.9 k/uL (1.3-7.7); Neutrophils % (A) 70 %; Platelet Count 255 k/uL (150-450); RBC 4.13 m/uL (3.80-5.40)
[2019-12-15 19:16] LABS: African American GFR (CKD) 101.9 (60.0-200.0); Albumin 4.1 g/dL (3.80-4.90); Albumin/Globulin Ratio 2.05 (1.60-3.17); Anion Gap 7.4 mmol/L (4.00-12.00); BUN/Creat Ratio 31.67 Ratio (12.00-20.00); Calcium 9.3 mg/dL (8.7-10.3); Carbon Dioxide 27.6 mmol/L (21.6-31.8); Chol/HDL Ratio 3.34; LDL Cholesterol,Calculated 139.6 mg/dL (0.0-131.0); Non-African American GFR(CKD) 87.9 (60.0-200.0); Potassium 4.6 mmol/L (3.5-5.5); Total Bilirubin 0.9 mg/dL (0.2-1.2); Total Protein 6.1 g/dL (6.2-8.2); VLDL Calculation 10.4 mg/dL (5.00-40.00)
[2019-12-15 19:26] LABS: T4, Free (Free Thyroxine) 1.2 ng/dL (0.80-1.80)
== END | disposition home or self-care (01) ==
LOC: LABWHC1 10:48
PROVIDERS: ATTEND Internal Medicine
DX: E78.5 Hyperlipidemia, unspecified (principal); E55.9 Vitamin D deficiency, unspecified; I10 Essential (primary) hypertension
CPT/HCPCS: 36415; 80053; 80061; 82306; 84439; 84443; 85025